=== PATIENT | female | born 1990 | race Caucasian/White ===

== ENCOUNTER 2018-11-18 18:15 | Inpatient (IN) | payer OTHER ==
[~2018-11-18] VITALS: Ht 160 cm; Wt 65.8 kg
[2018-11-18] MEDS: DEXT 5%/LR + PITOCIN 20UNITS/L 1,000 ML IV SCH ×2 (18:30→19:10)
[2018-11-18] MEDS ORDERED: LACTATED RINGERS 1,000 ML IV SCH (18:30)
[2018-11-18] MEDS ORDERED: MISOPROSTOL 100MCG TABLET VG PRN (18:30)
[2018-11-18] MEDS ORDERED: LIDOCAINE HCL 1% 20ML VIAL (Pyxis) INJ INFIL PRN (18:30)
[2018-11-18] MEDS ORDERED: PNV1TABL50 PO (18:34)
[2018-11-18] MEDS ORDERED: DEXT 5%/LR + PITOCIN 20UNITS/L 1,000 ML IV SCH (19:33)
[2018-11-18 19:43] LABS: BASOPHILS % 0.6 % (0.0-2.0); EOSINOPHILS % 0.6 % (0.0-5.0); HEMATOCRIT. 38.4 % (36.0-48.0); HEMOGLOBIN. 13.1 g/dL (12.0-16.0); LYMPHOCYTES % 13.3 % (20.0-50.0); MEAN CORPUSCULAR HEMOGLOBIN 31.2 pg (28.0-32.0); MEAN CORPUSCULAR VOLUME 91.2 fL (81.0-99.0); MONOCYTES % 6.1 % (2.0-8.0); NEUTROPHILS % 79.4 % (40.0-76.0); PLATELET 172 x1000/uL (130-400); RED BLOOD CELL COUNT 4.22 mill/uL (4.2-5.4); RED CELL DISTRIBUTION WIDTH 13.5 % (11.6-14.6)
[2018-11-18] MEDS ORDERED: LANOLIN OINT 7GM TUBE TOP PRN (19:45)
[2018-11-18] MEDS ORDERED: METHYLERGONOVINE MALEATE 0.2 MG/ML IM PRN (19:45)
[2018-11-18] MEDS ORDERED: IBUPROFEN 400MG TABLET PO PRN (19:45)
[2018-11-18] MEDS ORDERED: RHO(D) IMMUNE GLOBULIN 300 MCG/SYR IM PRN (19:45)
[2018-11-18 19:49] LABS: INR 0.9; PARTIAL THROMBOPLASTIN TIME 23.8 sec (23.4-31.0); PROTHROMBIN TIME 9.2 sec (9.6-11.0)
[2018-11-18 20:22] LABS: HEPATITIS B SURFACE ANTIGEN NEGATIVE
[2018-11-18 22:00] VITALS: BP 108/64
[2018-11-19] VITALS: BP 111/66
[2018-11-19 06:00] VITALS: BP 110/65
[2018-11-19 06:57] LABS: BASOPHILS % 0.3 % (0.0-2.0); EOSINOPHILS % 0.4 % (0.0-5.0); HEMATOCRIT. 30.8 % (36.0-48.0); HEMOGLOBIN. 10.6 g/dL (12.0-16.0); LYMPHOCYTES % 9.9 % (20.0-50.0); MEAN CORPUSCULAR HEMOGLOBIN 31.2 pg (28.0-32.0); MEAN CORPUSCULAR VOLUME 90.5 fL (81.0-99.0); MEAN PLATELET VOLUME 11.2 fl (7.4-10.4); MONOCYTES % 6.5 % (2.0-8.0); NEUTROPHILS % 82.9 % (40.0-76.0); PLATELET 155 x1000/uL (130-400); RED CELL DISTRIBUTION WIDTH 13.6 % (11.6-14.6)
[2018-11-19 07:40] VITALS: BP 90/51
[2018-11-19] MEDS: PRENATAL VIT/FE FUMARATE/FA TABLET PO SCH (09:07)
[2018-11-19] MEDS: IBUPROFEN 800MG TABLET PO PRN (09:07)
[2018-11-19 16:08] VITALS: BP 101/50
[2018-11-19 22:00] VITALS: BP 110/60
[2018-11-20 09:13] VITALS: BP 86/52
[2018-11-20] MEDS: PRENATAL VIT/FE FUMARATE/FA TABLET PO SCH (10:31)
[2018-11-20] MEDS: IBUPROFEN 800MG TABLET PO PRN (10:32)
== END 2018-11-20 13:20 | disposition home or self-care (01) | DRG 776 ==
LOC: OBSVTOIN 18:15 → 8 EST LDRP 18:15 → 8EST 22:08
PROVIDERS: ADMIT Obstetrics & Gynecology; ATTEND Obstetrics & Gynecology
PROC: 0HQ9XZZ Repair Perineum Skin, External Approach (ICD-10-PCS; principal; 2018-11-18)
PROC: 10E0XZZ Delivery of Products of Conception, External Approach (ICD-10-PCS; 2018-11-18)
DX: Z39.0 Encounter for care and examination of mother immediately after delivery (principal); D62 Acute posthemorrhagic anemia; O70.0 First degree perineal laceration during delivery; O90.81 Anemia of the puerperium
CPT/HCPCS: 36415; 86592; 86703; 86762; 86850; 86900; 87340; 99281; G0378; J2590; J3490